=== PATIENT | male | born 1970 | race African-American/Black ===

== ENCOUNTER 2016-09-12 11:46 | Emergency (ER) | payer MEDICAID ==
[2016-09-12 11:53] VITALS: BP 147/93; PULSE 82; RESP 18; TEMP 98.4; O2SAT 96
--- NOTE | 2016-09-12 12:23 | EDPHY ---
H & P Time Seen by Provider: 09/12/16 12:12 HPI/ROS: CHIEF COMPLAINT: Laceration left middle digit HISTORY OF PRESENT ILLNESS: 46-year-old male with up-to-date tetanus complaining of accidental laceration left middle digit distal phalanx dorsal aspect after he impacted piece of broken glass. No foreign body sensation. No paresthesia. No sensory motor deficit. Occurred shortly prior to arrival. Reproducible pain with palpation range of motion. PHYSICAL EXAM (Prior to examination, patient consented to physical exam, hands were washed and my usual and customary physical exam procedures followed) 1) GENERAL: Well-developed, well-nourished, alert and oriented. Appears to be in no acute distress. 2) HEAD: Normocephalic 3) HEENT: sclera anicteric 4) LUNGS: Breathing comfortably. 5) SKIN: dry blood present on the dorsal aspect distal phalanx middle digit, unable to visualize the laceration. 6) MUSCULOSKELETAL: tender to palpation distal phalanx dorsal aspect location of his laceration 7) NEUROLOGIC: Full sensation Smoking Status: Never smoked Constitutional: Initial Vital Signs Temperature (C) 36.9 C 09/12/16 11:51 Heart Rate 82 09/12/16 11:51 Respiratory Rate 18 09/12/16 11:51 Blood Pressure 147/93 H 09/12/16 11:51 O2 Sat (%) 96 09/12/16 11:51 O2 Delivery Mode Room Air Allergies/Adverse Reactions: acetaminophen [From Percocet] Adverse Reaction (Mild, Verified 09/12/16 11:49) Vomiting oxycodone HCl [From Percocet] Adverse Reaction (Mild, Verified 09/12/16 11:49) Vomiting Home Medications: Medication Instructions Recorded NK [No Known Home Meds] 09/12/16 MDM/Departure - MDM Diagnostics: Xray of the left middle digit interpreted by myself: no definitive acute osseous abnormality, no radiopaque foreign body Procedures: Digital nerve block of 1% plain lidocaine which patient tolerated well. The area is cleansed by ER patient services technician removing the dried blood revealing a superficial abrasion. this will be allowed to heal via secondary intention. - Depart Disposition: Home, Routine, Self-Care Clinical Impression: Abrasion of left middle finger Qualifiers: Encounter type: initial encounter Qualifier Code: (S60.413A) Abrasion of left middle finger, initial encounter Condition: Good Instructions: Laceration (ED) Additional Instructions: Return to the ER if you develop redness, swelling, discharge, warmth to the wound, red streaks going up your arm , or any other symptoms that concern you. Referrals: Yanique Yates [Primary Care Provider] - 5-7 days, call for appt.
--- NOTE | 2016-09-12 12:51 | DX ---
Left Third Finger, Three Views Indication: Laceration. Findings: The normally mineralized bones are anatomically aligned. No acute fracture or foreign brennen dy. Joint spaces are well preserved. No articular gas. Impression: Negative. No acute fracture or foreign body.
== END 2016-09-12 12:52 | disposition home or self-care (01) ==
DX: S60.413A Abrasion of left middle finger, initial encounter (principal); W25.XXXA Contact with sharp glass, initial encounter